=== PATIENT | female | born 1975 | race Caucasian/White ===

== ENCOUNTER 2020-04-18 16:15 | Outpatient (CLI) | payer OTHER, SELFPAY ==
[2020-04-18 16:34] LABS: Basophils Absolute Auto 0.05 K/mm3 (0.00-0.10); Basophils Percent Auto 0.6 % (0.0-1.0); Eosinophils Absolute Auto 0.08 K/mm3 (0.02-0.50); Hematocrit 42.1 % (35.0-49.0); Hemoglobin 14.7 g/dL (12.0-15.0); Immature Granulocyte Absolute 0.02 K/mm3 (0.00-0.00); Immature Granulocyte Percent A 0.2 % (0.0-0.0); Lymphocytes Percent Auto 30.5 % (18.0-42.0); Mean Corpuscular HGB Conc 34.9 g/dL (32.0-36.0); Mean Corpuscular Hemoglobin 34.3 pg (27.0-31.0); Mean Corpuscular Volume 98.4 fL (78.0-102.0); Mean Platelet Volume 8.9 fl (9.2-11.8); Monocytes Percent Auto 7.3 % (2.0-11.0); Neutrophils Percent Auto 60.4 % (50.0-70.0); Platelet Count Result 305 K/mm3 (150-420); Red Blood Count 4.28 M/mm3 (4.20-5.40); Red Cell Distribution Width 11.2 % (11.6-14.4); White Blood Count 8.2 K/mm3 (4.8-10.8)
[2020-04-18 16:53] LABS: Alanine Aminotransferase 14 U/L (14-59); Alkaline Phosphatase 82 U/L (46-116); Anion Gap 7 mmol/L (8-16); Aspartate Amino Transferase 11 U/L (15-37); Bilirubin,Total 0.1 mg/dL (0.00-1.00); Blood Urea Nitrogen 10 mg/dL (7-18); Calcium 9.3 mg/dL (8.5-10.1); Carbon Dioxide 31 mmol/L (21-32); Chloride 102 mmol/L (98-108); Estimated Glomerular Filt Rate > 60; Glucose 84 mg/dL (70-99); Osmolality Calculated 288 mOsm/kg (285-295); Potassium 4.2 mmol/L (3.5-5.1); Sodium 140 mmol/L (136-145); Total Protein 6.9 g/dL (6.4-8.2)
[2020-04-18 16:55] LABS: Add Urine Microscopic? YES; Appearance Urine Sl Cloudy (Clear); Bilirubin Urine Negative (Negative); Blood Urine Negative (Negative); Color Urine Yellow (Yellow); Glucose Urine UA Negative (Negative); Ketones Urine Trace (Negative); Leukocyte Esterase Ur Negative (Negative); Nitrate Urine Negative (Negative); Protein Urine Negative (Negative); Specific Grav Ur >= 1.030 (1.010-1.020); Urobilinogen Urine 0.2 mg/dL (0.2-1.0)
[2020-04-18 17:03] LABS: RBC Urine None seen /hpf (0-2); Squamous Epithelial Cell Urine Moderate /hpf (Few); WBC Urine None seen /hpf (0-3)
[2020-04-18 17:04] LABS: Bacteria Urine 1+ /hpf
[2020-04-21 22:47] LABS: Levetiracetam Keppra 19.3 mcg/mL (12.0-46.0)
== END 2020-04-18 16:16 | disposition home or self-care (01) ==
PROVIDERS: PCP Internal Medicine; Visit Provider Internal Medicine
DX: G40.909 Epilepsy, unspecified, not intractable, without status epilepticus (principal); R31.9 Hematuria, unspecified
CPT/HCPCS: 36415; 80053; 80177; 81001; 85025

== ENCOUNTER 2020-05-24 15:54 | Outpatient (CLI) | payer OTHER, SELFPAY ==
[2020-05-24 16:49] LABS: SARS-CoV-2 Ag Negative (Negative)
[2020-05-25 17:28] LABS: SARS-CoV-2 RNA PCR Negative
== END 2020-05-24 15:55 | disposition home or self-care (01) ==
PROVIDERS: PCP Internal Medicine; Visit Provider Nurse Practitioner Family
DX: R51.9 Headache, unspecified (principal); Z20.822 Contact with and (suspected) exposure to COVID-19
CPT/HCPCS: 87426; C9803; U0003; U0005

== ENCOUNTER 2020-11-19 16:13 | Emergency (ER) | payer OTHER, SELFPAY ==
--- NOTE | ~2020-11-19 | XR_ITS ---
EXAMINATION: XR forearm LT 2V DATE: 11/19/2020 17:53 INDICATION: Left wrist pain post fall TECHNIQUE: AP an lateral views of the left forearm were obtained. COMPARISON: none FINDINGS: Alignment is normal. No fracture. Joint spaces are normal. Soft tissues are unremarkable. No left elb ow joint effusion. IMPRESSION: 1. Negative left forearm radiographs. Reviewed, dictated and finalized at location A.
--- NOTE | ~2020-11-19 | XR_ITS ---
EXAMINATION: XR finger 5th RT min 2V DATE: 11/19/2020 17:52 INDICATION: Pain at the right fifth finger post fall TECHNIQUE: Dorsal palmar, lateral and 2 oblique views of the right fifth digit were obtained COMPARISON: None FINDINGS: Alignment is normal. No fracture. Joint spaces are normal. Soft tissues are unremarkable. IMPRESSION: 1. Negative right fifth finger radiographs. Reviewed, dictated and finalized at location A.
--- NOTE | ~2020-11-19 | XR_ITS ---
EXAMINATION: XR foot LT min 3V DATE: 11/19/2020 18:00 INDICATION: Lateral left foot pain post twisting injury TECHNIQUE: Dorsoplantar, two oblique and lateral views of the left foot were obtained. COMPARISON: None. FINDINGS: Old healed fracture deformity at the base of the left fifth metatarsal. Alignment is otherwise normal . No acute fracture. Mild osteoarthritis at the first metatarsophalangeal joint. Small Achilles and p lantar calcaneal spurs. Mild soft tissue swelling at the lateral aspect of the mid and hindfoot. No l eft ankle joint effusion. IMPRESSION: 1. No acute osseous abnormality. Reviewed, dictated and finalized at location A.
[2020-11-19 17:05] VITALS: BP 127/80; PULSE 87; RESP 18; TEMP 36.3; O2SAT 99
--- NOTE | 2020-11-19 17:34 | ED.FALL ---
HPI - Fall General Chief Complaint: Fall Stated Complaint: Fell hurt finger ,foot Time Seen by Provider: 11/19/20 17:07 Source: patient Mode of arrival: ambulatory Limitations: no limitations History of Present Illness HPI Narrative: pt fell, no head injury or LOC. hit right 5th finger, left forearm and left foot complaint: fall Onset (ago): hour(s) (1) Fall from: down stairs (#) Place fall occurred: home Loss of consciousness: none Prolonged down time: no Symptoms prior to fall: none Location of injury - extremities: Left: forearm and foot and Right: hand Severity: mild Severity scale (1-10): 2 Quality: dull Associated symptoms (after fall): denies Related Data Home Medications Medication Instructions Recorded Confirmed levetiracetam 750 mg PO BID 11/19/20 11/19/20 Allergies Allergy/AdvReac Type Severity Reaction Status Date / Time No Known Allergies Allergy Verified 11/19/20 17:04 Review of Systems Review of Systems: All systems reviewed & are unremarkable except as noted in HPI and below Constitutional: Constitutional: Reports as per HPI and Reports no additional constitutional complaints Eyes: Eyes: Reports as per HPI and Reports no additional eye complaints ENT: Reports system reviewed and no additional complaints, except as documented and Reports as per HPI Cardiovascular: Cardiovascular: Reports as per HPI and Reports no additional cardiovascular complaints Respiratory: Respiratory: Reports as per HPI and Reports no additional respiratory complaints Gastrointestinal: Gastrointestinal: Reports as per HPI and Reports no additional gastrointestinal complaints Genitourinary: Genitourinary: Reports no additional female genitourinary complaints and Reports as per HPI Musculoskeletal: Musculoskeletal: Reports no additional musculoskeletal complaints, Reports as per HPI and Reports arthralgias Integumentary/Breasts: Skin/Breast: Reports system reviewed and no additional complaints, except as docu and Reports as per HPI Neurologic: Reports system reviewed and no additional complaints, except as documented and Reports as per HPI Psychiatric: Psychiatric: Reports no additional psychiatric complaints and Reports as per HPI Endocrine: Endocrine: Reports no additional endocrine complaints and Reports as per HPI Hematologic/Lymphatic: Hematologic/Lymphatic: Reports no additional hematologic/lymphatic complaints and Reports as per HPI Allergic/Immunologic: Allergic/Immunologic: Reports no additional allergic/immunologic complaints and Reports as per HPI Exam Const: General: no acute distress and alert Nutritional Appearance: well nourished Orientation/consciousness: patient oriented x3 HENMT: Head: normal to inspection Ears: external ears normal and TM's normal bilaterally General nose exam: Normal external nose present and Normal nares present Mouth: Yes moist mucous membranes Throat: posterior oropharynx normal Eyes: Conjunctivae: conjunctivae normal Pupils: Equal, round and reactive pupils present EOM: EOMs intact bilaterally Neck: Neck: normal visual inspection and no lymphadenopathy Chest: Chest palpation & inspection: normal inspection of the chest Resp: Effort & Inspection: normal respiratory effort Auscultation: clear to auscultation bilaterally Cardio: Rate: regular rate Rhythm: regular rhythm GI: Auscultation: normal bowel sounds : General: Yes bladder normal to palpation and Yes no CVA tenderness Back/Spine/Pelvis: Back: no CVA tenderness Skin: General skin exam: normal color Rashes: no rashes Neuro: General: patient oriented x3, moves all extremities and no focal motor deficits Extrem: General: no pedal edema Other: Right 5th finger no acute redness, swelling or deformity, full ROM. left medial distal forearm minimally tender with no acute abnormality. left lateral mid-foot minimally tender with no acute redness, swelling or deformity. Psych: Appearance: gross
== END 2020-11-19 18:46 | disposition home or self-care (01) ==
PROVIDERS: Emergency Provider Emergency Medicine; PCP Internal Medicine
DX: S93.602A Unspecified sprain of left foot, initial encounter (principal); S63.636A Sprain of interphalangeal joint of right little finger, initial encounter; W19.XXXA Unspecified fall, initial encounter
CPT/HCPCS: 29130; 73090; 73140; 73630; 99282; 99284

== ENCOUNTER 2021-04-18 11:01 | Outpatient (CLI) | payer OTHER, SELFPAY ==
[2021-04-18 12:14] LABS: Influenza A QL RT-PCR Negative (Negative); Influenza B QL RT-PCR Negative (Negative); SARS-CoV-2 RNA PCR Negative (Negative)
== END 2021-04-18 11:02 | disposition home or self-care (01) ==
LOC: CHSLAB 11:02
PROVIDERS: PCP Internal Medicine; Visit Provider Internal Medicine
DX: J06.9 Acute upper respiratory infection, unspecified (principal); Z20.822 Contact with and (suspected) exposure to COVID-19
CPT/HCPCS: 87502; C9803; U0003; U0005

== ENCOUNTER 2021-06-09 14:29 | Outpatient (CLI) | payer OTHER, SELFPAY ==
--- NOTE | ~2021-06-09 | XR_ITS ---
XR_[id number]_CR DATE: 06/09/2021 14:57 INDICATION: Right cervical radiculopathy TECHNIQUE: AP, lateral, open mouth and swimmer views COMPARISON: None FINDINGS: There is straightening of the cervical spine. C1 and C2 are normally aligned and the odont oid process is intact. No fracture or dislocation, locked facet or prevertebral soft tissue swelling. There is mild anterior spurring at C5-6. There is moderately severe degenerative disc disease at L6-7. IMPRESSION: Straightening of the cervical spine Degenerative disc disease, mild at C5-6, moderately severe at C6-7 Reviewed, dictated and finalized at Location A. Reviewed, dictated and finalized at location B. ING AND RESIDENCE LIFE DIRECTOR
[2021-06-09 16:02] LABS: Basophils Absolute Auto 0.05 K/mm3 (0.00-0.10); Basophils Percent Auto 0.7 % (0.0-1.0); Eosinophils Absolute Auto 0.06 K/mm3 (0.02-0.50); Eosinophils Percent Auto 0.8 % (1.0-6.0); Hematocrit 42.1 % (35.0-49.0); Hemoglobin 14.8 g/dL (12.0-15.0); Immature Granulocyte Absolute 0.02 K/mm3 (0.00-0.00); Immature Granulocyte Percent A 0.3 % (0.0-0.0); Lymphocytes Absolute Auto 2.41 K/mm3 (1.10-4.50); Lymphocytes Percent Auto 31.4 % (18.0-42.0); Mean Corpuscular HGB Conc 35.2 g/dL (32.0-36.0); Mean Corpuscular Hemoglobin 34.7 pg (27.0-31.0); Mean Corpuscular Volume 98.6 fL (78.0-102.0); Mean Platelet Volume 9.8 fl (9.2-11.8); Monocytes Absolute Auto 0.53 K/mm3 (0.10-0.90); Monocytes Percent Auto 6.9 % (2.0-11.0); Neutrophils Absolute Auto 4.6 K/mm3 (1.7-7.2); Neutrophils Percent Auto 59.9 % (50.0-70.0); Platelet Count Result 336 K/mm3 (150-420); Red Blood Count 4.27 M/mm3 (4.20-5.40); White Blood Count 7.7 K/mm3 (4.8-10.8)
[2021-06-09 16:22] LABS: Alanine Aminotransferase 22 U/L (14-59); Albumin Level 4.2 g/dL (3.4-5.0); Alkaline Phosphatase 79 U/L (46-116); Anion Gap 7 mmol/L (8-16); Aspartate Amino Transferase 15 U/L (15-37); Bilirubin,Total 0.2 mg/dL (0.00-1.00); Blood Urea Nitrogen 12 mg/dL (7-18); Calcium 9.5 mg/dL (8.5-10.1); Carbon Dioxide 31 mmol/L (21-32); Chloride 101 mmol/L (98-108); Estimated Glomerular Filt Rate > 60; Glucose 82 mg/dL (70-99); Osmolality Calculated 286 mOsm/kg (285-295); Potassium 4.6 mmol/L (3.5-5.1); Sodium 139 mmol/L (136-145); Total Protein 7.3 g/dL (6.4-8.2)
[2021-06-13 10:04] LABS: Levetiracetam Keppra 21.2 mcg/mL (12.0-46.0)
[2021-06-15 05:40] LABS: SARS-CoV-2 IgG <1.00 Index (<1.00)
== END 2021-06-09 14:30 | disposition home or self-care (01) ==
LOC: CHSLAB 14:30
PROVIDERS: PCP Internal Medicine; Visit Provider Internal Medicine
DX: G40.909 Epilepsy, unspecified, not intractable, without status epilepticus (principal); M54.12 Radiculopathy, cervical region; Z20.822 Contact with and (suspected) exposure to COVID-19
CPT/HCPCS: 36415; 72040; 80053; 80177; 85025; 86769

== ENCOUNTER 2021-06-13 15:09 | Outpatient (RCR) | payer OTHER, SELFPAY ==
--- NOTE | 2021-06-13 15:59 | PTOPEVAL ---
Thank you for referring Nikki Jerez to [facility].? The patient is scheduled to be seen for therapy? ____x/week for ___ weeks. Please review, sign, date and return this plan of care AB. I agree with and certify that the following plan of care is medically necessary. Referring Physician Date Admitting Provider: Attending Provider: Jose E Perry MD Referring Provider: *PT Outpatient Evaluation Start: 06/13/21 15:22 Freq: Status: Active Protocol: Document 06/13/21 15:20 [facility] (Rec: 06/13/21 15:53 [facility] [id number]) Therapy Assessment Status Assessment Status Assessment Status Evaluation Outpatient Past Medical History Neurological History Hx Epilepsy Yes Reproductive History Hx Section Yes Evaluation Information Problem Diagnosis cervical radiculopathy Onset 06/12/21 Additional Evaluation Detail ndi = Subjective Information patient reports she has been Query Text:As Reported By Patient/ having pain in the bilateral Family shoulders, arms, elbows, but is worse on the R side. she reports the pain has been going on for a year or more. she reports she initially was unable to move when it first came on. she reports she had severe pain in the chest, arms , and shoulders. she reports she was diagnoses with fibromyalgia. she reports it went away, but then began having pain again when she started working at [employer] [facility] [employer] living [facility]. 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 she has had an xray of the cervical spine recently with straightening of the cervical spine, and moderate to severe degenerative disc diseae of the lower cervical spine. she reports the pain in the arms are worse with sitting. she reports at times her thumb will jitter and her smallest two fingers will clinch together. Prior Level of Function Comments Additional Prior Level of Function prior
--- NOTE | 2021-10-09 15:07 | PCPTNOTE ---
Mrs. Jerez attended 2 treatment sessions from 06/13/21 to 06/20/21. She has failed to return to the clinic and will be discharged from our care. Refer to the last daily note for pt. discharge status.
== END 2021-06-20 23:59 | disposition home or self-care (01) ==
LOC: CHSPT 15:09
PROVIDERS: PCP Internal Medicine; Visit Provider Internal Medicine
DX: M54.12 Radiculopathy, cervical region (principal)
CPT/HCPCS: 97014; 97110; 97140; 97161; G0283

== ENCOUNTER 2022-04-06 15:50 | Emergency (ER) | payer OTHER, SELFPAY ==
[2022-04-06 15:55] VITALS: BP 167/91; PULSE 80; RESP 20; TEMP 37; O2SAT 98
[2022-04-06] MEDS: ACETAMINOPHEN 325 MG TABLET 650 MG PO (16:25)
[2022-04-06] MEDS: guaiFENesin 12 HR 600 MG TABCR PO (16:25)
[2022-04-06 16:54] LABS: Influenza A QL RT-PCR Positive (Negative); Influenza B QL RT-PCR Negative (Negative); SARS-CoV-2 RNA PCR Negative (Negative)
[2022-04-06 16:55] LABS: RSV RNA, RT-PCR Negative (Negative); Strep Group A RT-PCR NOT DETECTED (Negative)
[2022-04-06 17:00] VITALS: BP 122/72; PULSE 77; RESP 20; TEMP 37; O2SAT 100
--- NOTE | 2022-04-06 17:33 | ED.URI ---
HPI - URI/Sore Throat General Chief Complaint: Upper Respiratory Infection Stated Complaint: fever, trouble breathing, sore throat Time Seen by Provider: 04/06/22 15:54 Source: patient and RN notes reviewed Mode of arrival: ambulatory Limitations: no limitations History of Present Illness MD elicited complaint: fever, cough, sore throat and nasal congestion Onset (ago): day(s) (2) Consistency: progressively worsening Severity: mild Pain scale (0-10): 2 Able to tolerate fluids by mouth: Yes Exacerbating factors: swallowing Relieving factors: OTC cold medicine Associated symptoms: fever, chills, voice changes, headache, nasal congestion and sore throat Related Data Home Medications Medication Instructions Recorded Confirmed levetiracetam 750 mg tablet 750 mg PO BID 11/19/20 04/06/22 Allergies Allergy/AdvReac Type Severity Reaction Status Date / Time NSAIDS (Non-Steroidal Allergy Unknown Verified 04/03/21 11:43 Anti-Inflamma Review of Systems Review of Systems: All systems reviewed & are unremarkable except as noted in HPI and below Constitutional: Constitutional: Reports no additional constitutional complaints Eyes: Eyes: Reports no additional eye complaints ENT: Reports system reviewed and no additional complaints, except as documented Cardiovascular: Cardiovascular: Reports no additional cardiovascular complaints Respiratory: Respiratory: Reports no additional respiratory complaints Gastrointestinal: Gastrointestinal: Reports no additional gastrointestinal complaints Genitourinary: Genitourinary: Reports no additional female genitourinary complaints Musculoskeletal: Musculoskeletal: Reports no additional musculoskeletal complaints Integumentary/Breasts: Skin/Breast: Reports system reviewed and no additional complaints, except as docu Neurologic: Reports system reviewed and no additional complaints, except as documented Psychiatric: Psychiatric: Reports no additional psychiatric complaints Endocrine: Endocrine: Reports no additional endocrine complaints Hematologic/Lymphatic: Hematologic/Lymphatic: Reports no additional hematologic/lymphatic complaints Allergic/Immunologic: Allergic/Immunologic: Reports no additional allergic/immunologic complaints PMFSH Past Medical History Medical History Influenza A Pharyngitis Family History Family History Father Family history of gout Cerebrovascular accident Family history of malignant neoplasm Family history of seizure disorder Social History Social History Smoking status: Heavy tobacco smoker Alcohol intake: current Exam Const: General: healthy appearing, no acute distress and well nourished Nutritional Appearance: well nourished Orientation/consciousness: patient oriented x3 Limitations: no limitations HENMT: Head: normal to inspection Ears: external ears normal, TM's normal bilaterally and EAC's normal Face/Nose/Sinus: Normal external nose present, Normal nares present, normal facial exam and sinuses nontender Face and sinus: normal facial exam and sinuses nontender Mouth: Yes Normal oral and palatal mucosa present and Yes moist mucous membranes Teeth and gingiva: dentition normal Other: mild pharyngeal redness Eyes: Conjunctivae: conjunctivae normal Pupils: Equal, round and reactive pupils present EOM: EOMs intact bilaterally Neck: Neck: normal visual inspection, no lymphadenopathy and no meningeal signs Chest: Chest palpation & inspection: normal inspection of the chest Resp: Effort & Inspection: normal respiratory effort Auscultation: clear to auscultation bilaterally Cardio: Rate: regular rate Rhythm: regular rhythm GI: GI Palp: Yes Soft to palpation and No Tenderness to palpation present (GI) Auscultation: normal bowel sounds : General: Yes
[2022-04-06 17:35] VITALS: BP 125/89; PULSE 75; RESP 20; TEMP 37; O2SAT 98
== END 2022-04-06 17:54 | disposition home or self-care (01) ==
PROVIDERS: Emergency Provider Emergency Medicine; PCP Internal Medicine
DX: J11.1 Influenza due to unidentified influenza virus with other respiratory manifestations (principal); Z20.822 Contact with and (suspected) exposure to COVID-19
CPT/HCPCS: 87637; 87651; 99283; A9270

== ENCOUNTER 2022-06-26 14:44 | Outpatient (CLI) | payer OTHER, SELFPAY ==
--- NOTE | ~2022-06-26 | XR_ITS ---
EXAMINATION: XR chest 2V 06/26/2022 15:21 INDICATION: COPD. PROCEDURE: 2 view chest COMPARISON: 08/06/2013 FINDINGS: The lungs are clear. The cardiomediastinal silhouette is within normal limits. There are no pleural effusions. There is no pneumothorax suspected. IMPRESSION: 1: NO ACUTE CARDIOPULMONARY DISEASE. Reviewed, dictated and finalized at location L. ER GOODS TESTER
[2022-06-26 15:04] LABS: Basophils Absolute Auto 0.05 K/mm3 (0.00-0.10); Basophils Percent Auto 0.6 % (0.0-1.0); Eosinophils Absolute Auto 0.12 K/mm3 (0.02-0.50); Eosinophils Percent Auto 1.5 % (1.0-6.0); Hematocrit 39.1 % (35.0-49.0); Hemoglobin 14.1 g/dL (12.0-15.0); Immature Granulocyte Absolute 0.03 K/mm3 (0.00-0.00); Immature Granulocyte Percent A 0.4 % (0.0-0.0); Lymphocytes Absolute Auto 2.56 K/mm3 (1.10-4.50); Lymphocytes Percent Auto 32.2 % (18.0-42.0); Mean Corpuscular HGB Conc 36.1 g/dL (32.0-36.0); Mean Corpuscular Hemoglobin 34.6 pg (27.0-31.0); Mean Corpuscular Volume 96.1 fL (78.0-102.0); Mean Platelet Volume 9.1 fl (9.2-11.8); Monocytes Absolute Auto 0.59 K/mm3 (0.10-0.90); Monocytes Percent Auto 7.4 % (2.0-11.0); Neutrophils Absolute Auto 4.6 K/mm3 (1.7-7.2); Neutrophils Percent Auto 57.9 % (50.0-70.0); Platelet Count Result 290 K/mm3 (150-420); Red Blood Count 4.07 M/mm3 (4.20-5.40); Red Cell Distribution Width 11.2 % (11.6-14.4)
[2022-06-26 15:07] LABS: Add Urine Microscopic? YES; Appearance Urine Clear (Clear); Bilirubin Urine Negative (Negative); Blood Urine 1+ (Negative); Color Urine Yellow (Yellow); Glucose Urine UA Negative (Negative); Ketones Urine Negative (Negative); Leukocyte Esterase Ur Negative (Negative); Nitrate Urine Negative (Negative); Protein Urine Negative (Negative); Specific Grav Ur 1.025 (1.010-1.020); Urobilinogen Urine 0.2 mg/dL (0.2-1.0); pH Urine 6.5 (5.0-8.0)
[2022-06-26 15:27] LABS: WBC Urine None seen /hpf (0-3)
[2022-06-26 15:28] LABS: Bacteria Urine 1+ /hpf; Squamous Epithelial Cell Urine Moderate /hpf (Few)
[2022-06-26 16:00] LABS: Alanine Aminotransferase 20 U/L (14-59); Albumin Level 3.8 g/dL (3.4-5.0); Alkaline Phosphatase 78 U/L (46-116); Anion Gap 6 mmol/L (8-16); Aspartate Amino Transferase 15 U/L (15-37); Bilirubin,Total 0.3 mg/dL (0.00-1.00); Blood Urea Nitrogen 15 mg/dL (7-18); Calcium 9.1 mg/dL (8.5-10.1); Carbon Dioxide 31 mmol/L (21-32); Chloride 104 mmol/L (98-108); Cholesterol 184 mg/dL (0-200); Estimated Glomerular Filt Rate > 60; Glucose 94 mg/dL (70-99); HDL Direct 37 mg/dL (40-60); LDL Cholesterol Calculated 82 mg/dL (<130); Osmolality Calculated 292 mOsm/kg (285-295); Potassium 4.2 mmol/L (3.5-5.1); Sodium 141 mmol/L (136-145); Thyroid Stimulating Hormone 1.76 uIU/mL (0.36-3.74); Total Protein 6.8 g/dL (6.4-8.2); Triglycerides 326 mg/dL (0-150)
[2022-06-28 12:39] LABS: Levetiracetam Keppra 31.3 mcg/mL (6.0-46.0)
== END 2022-06-26 14:45 | disposition home or self-care (01) ==
LOC: CHSLAB 14:46
PROVIDERS: PCP Internal Medicine; Visit Provider Internal Medicine
DX: G40.909 Epilepsy, unspecified, not intractable, without status epilepticus (principal); J44.9 Chronic obstructive pulmonary disease, unspecified; I65.23 Occlusion and stenosis of bilateral carotid arteries
CPT/HCPCS: 36415; 71046; 80053; 80061; 80177; 81001; 84443; 85025

== ENCOUNTER 2022-07-04 08:53 | Outpatient (CLI) | payer OTHER, SELFPAY ==
--- NOTE | ~2022-07-04 | US_ITS ---
EXAMINATION: US carotid duplex BI DATE: 07/04/2022 09:41 INDICATION: Follow-up carotid disease. TECHNIQUE: Grayscale, color Doppler, and pulsed Doppler images of the cervical carotid arteries were obtained. The degree of vessel stenosis is placed in one of the following categories: normal, <50%, 5 0-69%, >=70% but less than near-occlusion, near-occlusion, or total occlusion. Note that percent sten osis relative to normal distal artery lumen diameter is indirectly measured from velocity measurement s as described by Jairo, et al. Radiology 2003; 229:340-346. Notes: Normal: Peak systolic velocity <125 centimeters/sec and no plaque <50%. Peak systolic velocity <125 ( EDV <40; ICA/CCA PSV ratio <2.0; used these factors only a tandem lesions or low cardiac output or co ntralateral disease) 50-69 %: PSV 125-230 (EDV 40-100; ratio 2-4) >= 70% but less than near occlusion: PSV greater than 230 (EDV > 100; ratio> 4.0) Near Occlusion: PSV that is variable; markedly narrowed lumen Occlusion: Absent flow on color/spectral Doppler and no lumen on price scale. COMPARISON: Ultrasound carotid dated 10/27/2008. FINDINGS: RIGHT: The right common carotid artery (CCA) peak systolic velocity (PSV) is 114 cm/s. The right internal ca rotid artery (ICA) PSV is 89 cm/s. The right ICA end-diastolic velocity (EDV) is 35 cm/s. The right I CA/CCA PSV ratio is 0.78. The external carotid artery (ECA) PSV is 84 cm/s. There is antegrade flow i n the right vertebral artery. LEFT: The left CCA PSV is 108 cm/s. The left ICA PSV is 108 cm/s. The left ICA EDV is 42 cm/s. The left ICA /CCA PSV ratio is 1.0. The ECA PSV is 75 cm/s. There is antegrade flow in the left vertebral artery. IMPRESSION: 1. Less than 50% stenosis in the right internal carotid artery by sonographic criteria. 2. Less than 50% stenosis in the left internal carotid artery by sonographic criteria. Reviewed, dictated and finalized at location B. E MIXER IMPRESSION: 1. Less than 50% stenosis in the right internal carotid artery by sonographic c ashwini. 2. Less than 50% stenosis in the left internal carotid artery by sonographic cr brandy.
--- NOTE | ~2022-07-04 | MM_ITS ---
EXAMINATION: MM screening viola BI w anna HISTORY: Screening mammogram. Baseline examination. TECHNIQUE: Craniocaudal and mediolateral oblique 3-D tomosynthesis images were obtained and synthetic 2-D images were generated. CAD analysis was submitted and interpreted. COMPARISON: No prior mammogram is available for comparison at this institution. BREAST PARENCHYMAL COMPOSITION: The breasts are almost entirely fatty. FINDINGS: There is no evidence of suspicious mass, calcification, or architectural distortion to sugg est malignancy in either breast. There has been no suspicious interval change. IMPRESSION: 1. No mammographic evidence of malignancy. 2. Recommend routine screening mammography in one year. BI-RADS Category 1: Negative Reviewed, dictated and finalized at location A. ESPONDENCE COORDINATOR
== END 2022-07-04 08:54 | disposition home or self-care (01) ==
LOC: CHSIMG 08:55
PROVIDERS: PCP Internal Medicine; Visit Provider Internal Medicine
DX: Z12.31 Encounter for screening mammogram for malignant neoplasm of breast (principal); J44.9 Chronic obstructive pulmonary disease, unspecified; I65.23 Occlusion and stenosis of bilateral carotid arteries; G40.909 Epilepsy, unspecified, not intractable, without status epilepticus
CPT/HCPCS: 77063; 77067; 93880

== ENCOUNTER 2023-07-09 09:34 | Outpatient (CLI) | payer OTHER, SELFPAY ==
--- NOTE | ~2023-07-09 | XR_ITS ---
EXAMINATION: XR chest 2V DATE: 07/09/2023 10:16 INDICATION: Dyspnea. TECHNIQUE: Frontal and lateral views of the chest were obtained. COMPARISON: Chest 2 views 06/26/2022 FINDINGS: There is no pneumonia, pleural effusion, or pneumothorax. The heart size is normal. IMPRESSION: 1. No acute cardiopulmonary disease. Reviewed, dictated and finalized at location E. UTIVE ASSISTANT TO PRESIDENT
[2023-07-09 09:58] LABS: Basophils Absolute Auto 0.05 K/mm3 (0.00-0.10); Basophils Percent Auto 0.6 % (0.0-1.0); Eosinophils Absolute Auto 0.15 K/mm3 (0.02-0.50); Eosinophils Percent Auto 1.8 % (1.0-6.0); Hematocrit 39.6 % (35.0-49.0); Hemoglobin 14.1 g/dL (12.0-15.0); Immature Granulocyte Absolute 0.02 K/mm3 (0.00-0.00); Immature Granulocyte Percent A 0.2 % (0.0-0.0); Mean Corpuscular HGB Conc 35.6 g/dL (32.0-36.0); Mean Corpuscular Hemoglobin 33.8 pg (27.0-31.0); Mean Platelet Volume 8.9 fl (9.2-11.8); Monocytes Absolute Auto 0.59 K/mm3 (0.10-0.90); Monocytes Percent Auto 7.2 % (2.0-11.0); Neutrophils Absolute Auto 5.6 K/mm3 (1.7-7.2); Neutrophils Percent Auto 68.2 % (50.0-70.0); Platelet Count Result 291 K/mm3 (150-420); Red Blood Count 4.17 M/mm3 (4.20-5.40); Red Cell Distribution Width 11.1 % (11.6-14.4); White Blood Count 8.2 K/mm3 (4.8-10.8)
--- NOTE | 2023-07-09 10:00 | ECG_ITS ---
Measurements Intervals [place] Rate: 73 P: 53 DC: 136 QRS: 78 QRSD: 86 T: 55 QT: 368 QTc: 406 Interpretive Statements SINUS RHYTHM NORMAL ECG NO PREVIOUS ECG AVAILABLE FOR COMPARISON Electronically Signed On 07-09-2023 10:54:50 SAUSAGE STUFFER by Dieudonne Rivera D.O.
[2023-07-09 10:01] LABS: Appearance Urine Clear (Clear); Bilirubin Urine Negative (Negative); Blood Urine 3+ (Negative); Color Urine Yellow (Yellow); Glucose Urine UA Negative (Negative); Ketones Urine Negative (Negative); Leukocyte Esterase Ur Negative (Negative); Nitrate Urine Negative (Negative); Protein Urine Negative (Negative); Specific Grav Ur >= 1.030 (1.010-1.020); Urobilinogen Urine 0.2 mg/dL (0.2-1.0)
[2023-07-09 10:05] LABS: Add Urine Microscopic? YES; Bacteria Urine 1+ /hpf; Mucus Urine Few /lpf; RBC Urine 21-50 /hpf (0-2); Squamous Epithelial Cell Urine Few /hpf (Few)
[2023-07-09 10:11] LABS: D Dimer 0.25 mg/L (0.19-0.50); Prothrombin Time 10.7 Seconds (9.50-12.10)
[2023-07-09 10:45] LABS: Alanine Aminotransferase 26 U/L (14-59); Albumin Level 3.9 g/dL (3.4-5.0); Alkaline Phosphatase 67 U/L (46-116); Anion Gap 9 mmol/L (8-16); Aspartate Amino Transferase 14 U/L (15-37); Bilirubin,Total 0.3 mg/dL (0.00-1.00); Blood Urea Nitrogen 14 mg/dL (7-18); Calcium 8.9 mg/dL (8.5-10.1); Carbon Dioxide 29 mmol/L (21-32); Chloride 100 mmol/L (98-108); Cholesterol 189 mg/dL (0-200); Estimated Glomerular Filt Rate > 60; Glucose 113 mg/dL (70-99); HDL Direct 47 mg/dL (40-60); LDL Cholesterol Calculated 106 mg/dL (<130); NT Pro B Type Natriuretic Pept 88 pg/mL (0-125); Osmolality Calculated 287 mOsm/kg (285-295); Potassium 3.7 mmol/L (3.5-5.1); Sodium 138 mmol/L (136-145); Thyroid Stimulating Hormone 1.93 uIU/mL (0.36-3.74); Total Protein 6.7 g/dL (6.4-8.2); Triglycerides 179 mg/dL (0-150)
[2023-07-11 16:10] LABS: Levetiracetam Keppra 16.4 mcg/mL (6.0-46.0)
== END 2023-07-09 09:35 | disposition home or self-care (01) ==
PROVIDERS: PCP Internal Medicine; Visit Provider Internal Medicine
DX: Z00.00 Encounter for general adult medical examination without abnormal findings (principal); G40.909 Epilepsy, unspecified, not intractable, without status epilepticus; R06.00 Dyspnea, unspecified
CPT/HCPCS: 36415; 71046; 80053; 80061; 80177; 81001; 83880; 84443; 85025; 85380; 85610; 93005

== ENCOUNTER 2023-07-22 12:35 | Outpatient (CLI) | payer OTHER, SELFPAY ==
[2023-07-22 12:47] LABS: Appearance Urine Clear (Clear); Bilirubin Urine Negative (Negative); Blood Urine Trace-intact (Negative); Color Urine Yellow (Yellow); Glucose Urine UA Negative (Negative); Ketones Urine Negative (Negative); Leukocyte Esterase Ur Negative (Negative); Nitrate Urine Negative (Negative); Protein Urine Negative (Negative); Specific Grav Ur 1.025 (1.010-1.020); Urobilinogen Urine 0.2 mg/dL (0.2-1.0)
[2023-07-22 12:52] LABS: Add Urine Microscopic? YES; RBC Urine 0-2 /hpf (0-2); WBC Urine 0-3 /hpf (0-3)
[2023-07-22 12:53] LABS: Bacteria Urine 1+ /hpf; Squamous Epithelial Cell Urine Moderate /hpf (Few)
== END 2023-07-22 12:36 | disposition home or self-care (01) ==
LOC: CHSCARD 12:35
PROVIDERS: PCP Internal Medicine; Visit Provider Internal Medicine
DX: R06.00 Dyspnea, unspecified (principal); R31.29 Other microscopic hematuria
CPT/HCPCS: 81001; 94060; 94726; 94729

== ENCOUNTER 2024-06-26 14:52 | Outpatient (CLI) | payer OTHER, SELFPAY ==
--- NOTE | ~2024-06-26 | XR_ITS ---
EXAMINATION: XR chest 2V 06/26/2024 15:43 INDICATION: Upper respiratory infection. Cough. PROCEDURE: 2 view chest COMPARISON: Comparison to multiple prior studies sequentially, with oldest reviewed study dated 01/23. FINDINGS: The lungs are clear. The cardiomediastinal silhouette is within normal limits. There are no pleural effusions. There is no pneumothorax suspected. IMPRESSION: 1: NO ACUTE CARDIOPULMONARY DISEASE. Reviewed, dictated and finalized at location L. K SORTER
[2024-06-26 15:13] LABS: Basophils Absolute Auto 0.03 K/mm3 (0.00-0.10); Basophils Percent Auto 0.5 % (0.0-1.0); Eosinophils Absolute Auto 0.06 K/mm3 (0.02-0.50); Hematocrit 41.2 % (35.0-49.0); Hemoglobin 14.4 g/dL (12.0-15.0); Immature Granulocyte Absolute 0.04 K/mm3 (0.00-0.00); Immature Granulocyte Percent A 0.7 % (0.0-0.0); Lymphocytes Absolute Auto 1.95 K/mm3 (1.10-4.50); Lymphocytes Percent Auto 32.7 % (18.0-42.0); Mean Corpuscular Hemoglobin 33.5 pg (27.0-31.0); Mean Corpuscular Volume 95.8 fL (78.0-102.0); Mean Platelet Volume 9.1 fl (9.2-11.8); Monocytes Absolute Auto 0.52 K/mm3 (0.10-0.90); Monocytes Percent Auto 8.7 % (2.0-11.0); Neutrophils Absolute Auto 3.36 K/mm3 (1.70-7.20); Neutrophils Percent Auto 56.4 % (50.0-70.0); Platelet Count Result 298 K/mm3 (150-420); Red Cell Distribution Width 11.1 % (11.6-14.4)
[2024-06-26 15:14] LABS: Add Urine Microscopic? YES; Appearance Urine Clear (Clear); Bilirubin Urine Negative (Negative); Blood Urine 3+ (Negative); Color Urine Yellow (Yellow); Glucose Urine UA Negative (Negative); Ketones Urine Negative (Negative); Leukocyte Esterase Ur Negative (Negative); Nitrate Urine Negative (Negative); Protein Urine 1+ (Negative); Specific Grav Ur >= 1.030 (1.010-1.020); Urobilinogen Urine 0.2 mg/dL (0.2-1.0)
[2024-06-26 15:21] LABS: Bacteria Urine Trace /hpf; Mucus Urine Moderate /lpf; RBC Urine 21-50 /hpf (0-2); Squamous Epithelial Cell Urine Moderate /hpf (Few); WBC Urine None seen /hpf (0-3)
[2024-06-26 15:48] LABS: SARS-CoV-2 RNA PCR Negative (Negative)
[2024-06-26 15:55] LABS: Influenza A QL RT-PCR Negative (Negative); Influenza B QL RT-PCR Negative (Negative); RSV RNA, RT-PCR Negative (Negative)
[2024-06-26 16:03] LABS: Alanine Aminotransferase 24 U/L (14-59); Albumin Level 3.8 g/dL (3.4-5.0); Alkaline Phosphatase 90 U/L (46-116); Aspartate Amino Transferase 15 U/L (15-37); Bilirubin,Total 0.4 mg/dL (0.00-1.00); Blood Urea Nitrogen 14 mg/dL (7-18); Carbon Dioxide 31 mmol/L (21-32); Cholesterol 188 mg/dL (0-200); Estimated Glomerular Filt Rate > 60; Glucose 111 mg/dL (70-99); HDL Direct 42 mg/dL (40-60); LDL Cholesterol Calculated 92 mg/dL (<130); Thyroid Stimulating Hormone 1.21 uIU/mL (0.36-3.74); Total Protein 6.7 g/dL (6.4-8.2); Triglycerides 271 mg/dL (0-150)
[2024-06-26 16:06] LABS: Anion Gap 7 mmol/L (4-12); Chloride 101 mmol/L (98-108); Osmolality Calculated 289 mOsm/kg (285-295); Potassium 4.1 mmol/L (3.5-5.1); Sodium 139 mmol/L (136-145)
[2024-06-29 15:42] LABS: Levetiracetam Keppra 33.6 mcg/mL (6.0-46.0)
== END 2024-06-26 14:53 | disposition home or self-care (01) ==
LOC: CHSLAB 14:54
PROVIDERS: PCP Internal Medicine; Visit Provider Internal Medicine
DX: Z00.00 Encounter for general adult medical examination without abnormal findings (principal); J06.9 Acute upper respiratory infection, unspecified; G40.909 Epilepsy, unspecified, not intractable, without status epilepticus
CPT/HCPCS: 36415; 71046; 80053; 80061; 80177; 81001; 84443; 85025; 87637